=== PATIENT | female | born 1950 | race Caucasian/White ===

== ENCOUNTER 2020-03-28 11:58 | Emergency (ER) | payer MEDICARE, OTHER ==
[2020-03-28 12:20] VITALS: BP 132/58; PULSE 46
[2020-03-28] MEDS ORDERED: Diazepam 5 MG Tab PO ONE (13:02)
--- NOTE | 2020-03-28 14:06 | EDM.PDOC ---
ED HPI GENERAL MEDICAL PROBLEM - General Chief Complaint: General Stated Complaint: Lightheaded Time Seen by Provider: 03/28/20 12:16 Source of Information: Reports: Patient History Limitations: Reports: No Limitations - History of Present Illness INITIAL COMMENTS - FREE TEXT/NARRATIVE: Patient is a 89 year old white female with history of HTN who presents with complaint of several week history of feeling dizzy, SOB at times with cough at times and feeling like she may pass out when she stands up. Patient has fallen several times and feels that she is not thinking clearly. She is concerned aboyt possible stroke or heart attack and proble being related to falling and striking her head Onset Date: 03/03/20 Duration: Week(s): (3 weeks) - Related Data Allergies Allergy/AdvReac Type Severity Reaction Status Date / Time No Known Allergies Allergy Verified 03/28/20 11:59 Home Meds: Home Meds NK [No Known Home Meds] 08/31/16 [History] Past Medical History HEENT History: Reports: Hard of Hearing, Impaired Vision Cardiovascular History: Reports: Arrhythmia, Hypertension, [place], SOB on Exertion, Stents, Syncope Musculoskeletal History: Reports: Osteoarthritis Social & Family History - Tobacco Use Smoking Status *Q: Never Smoker - Caffeine Use Caffeine Use: Reports: Coffee Caffeine Use Comment: in the morning 1 cup - Recreational Drug Use Recreational Drug Use: No ED ROS GENERAL - Review of Systems Review Of Systems: See Below Constitutional: Reports: Chills. Denies: Fever Respiratory: Reports: Shortness of Breath, Cough. Denies: Wheezing Cardiovascular: Reports: Dyspnea on Exertion. Denies: Chest Pain Endocrine: Reports: Fatigue GI/Abdominal: Denies: Nausea, Vomiting : Denies: Dysuria, Flank Pain, Frequency, Hematuria Skin: Denies: Rash Neurological: Reports: Headache ED EXAM, GENERAL - Physical Exam Exam: See Below Exam Limited By: No Limitations General Appearance: Alert, WD/WN, No Apparent Distress Eye Exam: Bilateral Eye: PERRL Ear Exam: Bilateral Ear: Auricle Normal Nose: Normal Inspection, Normal Mucosa, No Blood Throat/Mouth: Normal Inspection, Normal Lips Head: Atraumatic, Normocephalic Neck: Supple, Non-Tender, Full Range of Motion Respiratory/Chest: No Respiratory Distress, Lungs Clear, Normal Breath Sounds Cardiovascular: Regular Rate, Rhythm, No JVD, No Murmur, Bradycardia GI/Abdominal: Soft, Non-Tender, No Distention Extremities: Normal Range of Motion Neurological: Alert, Oriented, CN II-XII Intact, Normal Cognition, Normal Gait, No Motor/Sensory Deficits Psychiatric: Normal Affect, Normal Mood Skin Exam: Warm, Dry, Intact Course - Vital Signs Text/Narrative:: Patient had CT of head which was negative for bleeding or evidence of CVA or fracture Labs reviewed Troponin not elevated CXR within normal limits by my reading Last Recorded V/S: Last Vital Signs Temp 98.2 F 03/28/20 12:12 Pulse 46 L 03/28/20 12:12 Resp 16 03/28/20 12:12 BP 132/58 L 03/28/20 12:12 Pulse Ox 100 03/28/20 12:12 Orthostatic Blood Pressure [ 139/57 Standing] Orthostatic Blood Pressure [ 132/62 Sitting] Orthostatic Blood Pressure [ 131/64 Supine] - Orders/Labs/Meds Orders: Active Orders 24 hr Category Date Time Status EKG Documentation Completion [RC] ASDIRECTED Care 03/28/20 12:29 Active Labs: Laboratory Tests 03/28/20 03/28/20 03/28/20 Range/Units 12:05 13:00 13:05 WBC 10.8 (4.0-11.0) K/uL RBC 4.36 (3.80-5.80) M/uL Hgb 13.2 (11.5-16.5) g/dL Hct 40.0 (37.0-47.0) % MCV 92 (76-96) fL MCH 30.3 (27.0-32.0) pg MCHC 33.0 (31.0-35.0) g/dL RDW 15.2 (11.0-16.0) % Plt Count 332 (150-500) K/uL MPV 12.3 H (6.0-10.0) fL Neut % (Auto) 75.6 H (45.0-70.0) % Lymph % (Auto) 15.1 L (20.0-40.0) % [place] % (Auto) 6.8 (3.0-10.0) % Eos % (Auto) 1.9 (1.0-5.0) % Baso % (Auto) 0.6 H (0.0-0.5) % Neut # (Auto) 8.19 H (2.00-7.50) K/uL Lymph # (Auto) 1.63 (1.50-4.00) K/uL [place] # (Auto) 0.74 (0.20-0.80) K/uL Eos # (Auto) 0.21 (0.04-0.40) K/uL Baso # (Auto) 0.06 (0.02-0.10) K/uL Sodium 137 (136-145) mmol/L Potassium 4.5 (3.5-5.1) mmol/L Chloride 101 (98-107) mmol/L Carbon Dioxide 27.3 D (21.0-32.0) mmol/L Anion Gap 13.2 (5.0-15.0) mmol/L BUN 25 D (8-26) mg/dL Creatinine 1.33 H D (0.55-1.02) mg/dL Est Cr Clr Drug Dosing 29.08 mL/min Estimated GFR (MDRD) 40 L (>60) MLS/MIN BUN/Creatinine Ratio 18.8 (6-25) Glucose 109 H (74-100) mg/dL Calcium 9.3 (8.5-10.1) mg/dL Total Bilirubin 0.7 D (0.0-1.0) mg/dL AST 24 (15-37) U/L ALT 23 (12-78) U/L Alkaline Phosphatase 111 (46-116) U/L Troponin I < 0.017 D (0.000-0.060) ng/mL Total Protein 7.7 (6.4-8.2) g/dL Albumin 4.4 (3.4-5.0) g/dL Globulin 3.3 (2.2-4.2) g/dL Albumin/Globulin Ratio 1.3 (0.8-2.0) COVID-19 (ENE) Negative Meds: Medications Discontinued Medications Generic Name Dose Route Start Last Admin Trade Name Freq PRN Reason Stop Dose Admin Diazepam 5 mg 03/28/20 13:02 03/28/20 13:03 Valium. PO 03/28/20 13:03 Not Given ONETIME ONE Departure - Departure Time of Disposition: 14:00 Disposition: Home, Self-Care 01 Condition: Good Clinical Impression: Adverse reaction to metoprolol Qualifiers: Encounter type: initial encounter Qualified Code(s): T44.7X5A - Adverse effect of beta-adrenoreceptor antagonists, initial encounter - Discharge Information *PRESCRIPTION DRUG MONITORING PROGRAM REVIEWED*: Not Applicable *COPY OF PRESCRIPTION DRUG MONITORING REPORT IN PATIENT SERA: Not Applicable Instructions: Bradycardia, Adult Referrals: PCP,None [Primary Care Provider] - Forms: ED Department Discharge Additional Instructions: Stop metoprolol for now until follow up tomorrow in ED Stand slowly and minimize activity until after being seen in ED tomorrow Return for chest pain, SOB or other worsening of symptoms Recheck tomorrow here in ED Continue other meds Discontinue Celebrex and discuss with your doctor as you have decreased kidney function and this med can make things worse. Condition on discharge is stable Sepsis Event Note (ED) - Evaluation Sepsis Screening Result: No Definite Risk - My Orders Last 24 Hours: My Active Orders 03/28/20 12:29 EKG Documentation Completion [RC] ASDIRECTED - Assessment/Plan Last 24 Hours: My Active Orders 03/28/20 12:29 EKG Documentation Completion [RC] ASDIRECTED
--- NOTE | 2020-03-28 16:51 | CT ---
Date of Service: 03/28/20 Clinical Data: fall UNENHANCED BRAIN CT: Multislice axial acquisition was performed. No priors. There is mild atrophy. No masses or mass effect. No intracranial hemorrhage. No evidence of acute or subacute infarct. No fractures. There is small osteoma projecting from the frontal bone anteriorly. There is minimal mucosal thickening of the ethmoid sinuses consistent with chronic sinusitis. IMPRESSION: No acute intracranial abnormalities. [id number] MTDD
--- NOTE | 2020-03-28 17:21 | CR ---
DATE OF SERVICE: 03/28/20 CLINICAL DATA: Dizziness PA AND LATERAL CHEST: Comparison is made to a prior exam dated 08/31/16. The heart size is normal. There is calcification of the aortic arch. The lungs are clear. No pneumothorax. No pleural effusions. No evidence of acute intrathoracic disease. [id number] MTDD
== END 2020-03-28 14:17 | disposition home or self-care (01) ==
LOC: LB.ED 11:58
DX: R42 Dizziness and giddiness (principal); R05 Cough; T44.7X5A Adverse effect of beta-adrenoreceptor antagonists, initial encounter; R06.02 Shortness of breath; I10 Essential (primary) hypertension; I25.2 Old myocardial infarction; Z20.828 Contact with and (suspected) exposure to other viral communicable diseases
CPT/HCPCS: 36415; 70450; 71046; 80053; 84484; 85025; 93005; 99284; U0002; 99283

== ENCOUNTER 2020-09-13 11:21 | Emergency (ER) | payer MEDICARE ==
[2020-09-13] MEDS ORDERED: Sodium Chloride 0.9% 10 ML Syringe FLUSH PRN (11:27)
--- NOTE | 2020-09-13 11:28 | EDM.PDOC ---
ED HPI GENERAL MEDICAL PROBLEM - General Chief Complaint: Cardiovascular Problem Stated Complaint: DIZZY Time Seen by Provider: 09/13/20 11:25 Source of Information: Reports: Patient, Old Records History Limitations: Reports: No Limitations - History of Present Illness INITIAL COMMENTS - FREE TEXT/NARRATIVE: patient presented to the ER with a c/o headache and low back pain. has a h/o migraine for which she is on prescribed meds. She reports she is worried about a cardiac event because she has a h/o CAD 4 yrs ago requiting stent placement. Denies CP or pressure in the chest area at this time. No SOB. No dizziness or palpitations. No numbness or tingling. Reports a headache that started 5 days ago, for which she took anti-migraine medicine which helped and took the edge off. Denies vision problems or weakness. No nausea. Aslo reports low back pain, for which she took meloxicam which helped. No urinary symptoms. Onset: Gradual Duration: Week(s): (1) Location: Reports: Head, Back Quality: Reports: Dull Severity: Mild Improves with: Reports: Medication, Movement Associated Symptoms: Reports: Headaches. Denies: Chest Pain, Cough, Diaphoresis, Fever/Chills, Malaise, Nausea/Vomiting, Rash, Shortness of Breath, Syncope, Weakness Headache Pain Score (Numeric/FACES): 4 - Related Data Allergies Allergy/AdvReac Type Severity Reaction Status Date / Time No Known Allergies Allergy Verified 09/13/20 11:52 Home Meds: Home Meds Aspirin [Halfprin] 81 mg PO DAILY 09/13/20 [History] Clopidogrel Bisulfate [Plavix] 75 mg PO DAILY 09/13/20 [History] Cyclobenzaprine [Flexeril] 10 mg PO TID PRN 09/13/20 [History] Meloxicam 7.5 mg PO DAILY 09/13/20 [History] Metoprolol Tartrate 25 mg PO DAILY 09/13/20 [History] Rizatriptan Benzoate [Rizatriptan] 5 mg PO DAILY 09/13/20 [History] Zolpidem Tartrate [Ambien] 10 mg PO BEDTIME 09/13/20 [History] amLODIPine Besylate [Norvasc] 2.5 mg PO DAILY 09/13/20 [History] atorvaSTATin Calcium [Lipitor] 40 mg PO DAILY 09/13/20 [History] lisinopriL [Lisinopril] 10 mg PO DAILY 09/13/20 [History] Past Medical History HEENT History: Reports: Hard of Hearing, Impaired Vision Cardiovascular History: Reports: Arrhythmia, Hypertension, [place], SOB on Exertion, Stents, Syncope Musculoskeletal History: Reports: Osteoarthritis Social & Family History - Caffeine Use Caffeine Use: Reports: Coffee Caffeine Use Comment: in the morning 1 cup ED ROS GENERAL - Review of Systems Review Of Systems: See Below Constitutional: Reports: No Symptoms. Denies: Fever, Chills, Malaise, Weakness, Fatigue, Diaphoresis HEENT: Reports: No Symptoms. Denies: Eye Pain, Vision Change Respiratory: Reports: No Symptoms Cardiovascular: Reports: No Symptoms GI/Abdominal: Reports: No Symptoms : Reports: No Symptoms Musculoskeletal: Reports: Back Pain Skin: Reports: No Symptoms Neurological: Reports: Headache. Denies: Confusion, Dizziness, Numbness, Paresthesia, Tingling, Tremors, Change in Speech, Gait Disturbance Psychiatric: Reports: No Symptoms ED EXAM, GENERAL - Physical Exam Exam: See Below Exam Limited By: No Limitations General Appearance: Alert, WD/WN, No Apparent Distress Nose: Normal Inspection Head: Atraumatic, Normocephalic Respiratory/Chest: No Respiratory Distress, Lungs Clear, Normal Breath Sounds, No Accessory Muscle Use Cardiovascular: Normal Peripheral Pulses, Regular Rate, Rhythm Peripheral Pulses: 2+: Carotid (L), Radial (L) GI/Abdominal: Normal Bowel Sounds, Soft, Non-Tender Rectal (Female) Exam: Normal Exam, Normal Rectal Tone Extremities: Normal Inspection Neurological: Alert, Oriented, CN II-XII Intact, Normal Cognition Skin Exam: Warm, Dry Course - Vital Signs Last Recorded V/S: Last Vital Signs Temp 36.4 C 09/13/20 11:50 Pulse 75 09/13/20 12:40 Resp 18 09/13/20 12:40 BP 101/58 L 09/13/20 12:40 Pulse Ox 97 09/13/20 12:40 - Orders/Labs/Meds Orders: Active Orders 24 hr Category Date Time Status EKG Documentation Completion [RC] ASDIRECTED Care 09/13/20 11:27 Active Chest 1V Frontal [CR] Stat Exams 09/13/20 11:26 Taken Sodium Chloride 0.9% [Saline Flush] Med 09/13/20 11:27 Active 10 ml FLUSH ASDIRECTED PRN Saline Lock Insert [OM.PC] Routine Oth 09/13/20 11:27 Ordered Medication Orders Sodium Chloride (Saline Flush) 10 ml FLUSH ASDIRECTED PRN PRN Reason: Keep Vein Open Labs: Laboratory Tests 09/13/20 09/13/20 09/13/20 Range/Units 11:49 12:08 12:08 WBC 14.6 H D (4.0-11.0) K/uL RBC 4.15 (3.80-5.80) M/uL Hgb 12.4 (11.5-16.5) g/dL Hct 38.1 (37.0-47.0) % MCV 92 (76-96) fL MCH 29.9 (27.0-32.0) pg MCHC 32.5 (31.0-35.0) g/dL RDW 15.3 (11.0-16.0) % Plt Count 337 (150-500) K/uL MPV 12.3 H (6.0-10.0) fL Sodium 136 (136-145) mmol/L Potassium 4.3 (3.5-5.1) mmol/L Chloride 101 (98-107) mmol/L Carbon Dioxide 25.5 (21.0-32.0) mmol/L Anion Gap 13.8 (5.0-15.0) mmol/L BUN 37 H D (8-26) mg/dL Creatinine 2.21 H D (0.55-1.02) mg/dL Est Cr Clr Drug Dosing 17.50 mL/min Estimated GFR (MDRD) 22 L (>60) MLS/MIN BUN/Creatinine Ratio 16.7 (6-25) Glucose 104 H (74-100) mg/dL Calcium 9.4 (8.5-10.1) mg/dL Phosphorus 4.3 (2.5-4.9) mg/dL Magnesium 2.3 (1.8-2.4) mg/dL Troponin I < 0.017 (0.000-0.060) ng/mL Urine Color Urine Appearance (CLEAR) Urine pH (5.0-8.0) Ur Specific [place] (1.003-1.030) Urine Protein (NEGATIVE) mg/dL Urine Glucose (UA) (NEGATIVE) mg/dL Urine Ketones (NEGATIVE) mg/dL Urine Occult Blood (NEGATIVE) Urine Nitrite (NEGATIVE) Urine Bilirubin (NEGATIVE) Urine Urobilinogen (0.2-1.0) E.U./dL Ur Leukocyte Esterase (NEGATIVE) SARS CoV-2 RNA Rapid ENE Negative 09/13/20 Range/Units 13:15 WBC (4.0-11.0) K/uL RBC (3.80-5.80) M/uL Hgb (11.5-16.5) g/dL Hct (37.0-47.0) % MCV (76-96) fL MCH (27.0-32.0) pg MCHC (31.0-35.0) g/dL RDW (11.0-16.0) % Plt Count (150-500) K/uL MPV (6.0-10.0) fL Sodium (136-145) mmol/L Potassium (3.5-5.1) mmol/L Chloride (98-107) mmol/L Carbon Dioxide (21.0-32.0) mmol/L Anion Gap (5.0-15.0) mmol/L BUN (8-26) mg/dL Creatinine (0.55-1.02) mg/dL Est Cr Clr Drug Dosing mL/min Estimated GFR (MDRD) (>60) MLS/MIN BUN/Creatinine Ratio (6-25) Glucose (74-100) mg/dL Calcium (8.5-10.1) mg/dL Phosphorus (2.5-4.9) mg/dL Magnesium (1.8-2.4) mg/dL Troponin I (0.000-0.060) ng/mL Urine Color Yellow Urine Appearance Clear (CLEAR) Urine pH 5.0 (5.0-8.0) Ur Specific [place] 1.025 (1.003-1.030) Urine Protein Negative (NEGATIVE) mg/dL Urine Glucose (UA) Negative (NEGATIVE) mg/dL Urine Ketones 15 H (NEGATIVE) mg/dL Urine Occult Blood Negative (NEGATIVE) Urine Nitrite Negative (NEGATIVE) Urine Bilirubin Small H (NEGATIVE) Urine Urobilinogen 0.2 (0.2-1.0) E.U./dL Ur Leukocyte Esterase Negative (NEGATIVE) SARS CoV-2 RNA Rapid ENE Meds: Medications Generic Name Dose Route Start Last Admin Trade Name Wojciech PRN Reason Stop Dose Admin Sodium Chloride 10 ml 09/13/20 11:27 Saline Flush FLUSH ASDIRECTED PRN Keep Vein Open - Re-Assessments/Exams Free Text/Narrative Re-Assessment/Exam: 09/13/20 13:39 EKG - WNL CXR WNL labs significant for mild leukocytosis, but elevation in her Cr. Trop WNL COVID neg Patients admits she hasn't been drinking enough fluids recently. It was explained to her is that, not drinking enough fluids plus NSAIDs can damage the kidneys. she was offered IVF for hydration - she declined and prefer to drink by mouth Departure - Departure Time of Disposition: 13:40 Disposition: Home, Self-Care 01 Condition: Good Clinical Impression: CRISELDA (acute kidney injury) Headache Qualifiers: Headache type: tension-type Headache chronicity pattern: chronic headache Intractability: intractable Qualified Code(s): G44.221 - Chronic tension-type headache, intractable - Discharge Information *PRESCRIPTION DRUG MONITORING PROGRAM REVIEWED*: Not Applicable *COPY OF PRESCRIPTION DRUG MONITORING REPORT IN PATIENT SERA: Not Applicable Referrals: PCP,None [Primary Care Provider] - Forms: ED Department Discharge Additional Instructions: - increase fluids intake to at least 3-4 lit per day for the next 3-4 days - recommend to stop taking meloxicam or NSAIDs since this can affect your kidney function - follow up with your PCP in 3-4 days- recommend to recheck your kidney function - return to the ER if any concerns Sepsis Event Note (ED) - Focused Exam Vital Signs: Vital Signs Temp Pulse Resp BP Pulse Ox 09/13/20 12:40 75 18 101/58 L 97 09/13/20 12:20 64 18 108/53 L 100 09/13/20 12:00 70 18 98/53 L 98 09/13/20 11:50 36.4 C 74 18 108/67 97 09/13/20 11:45 74 18 108/67 98 09/13/20 11:23 37.1 C 83 18 108/64 97 - Problem List & Annotations (1) CRISELDA (acute kidney injury) SNOMED Code(s): 34182776, 01564922 Code(s): N17.9 - ACUTE KIDNEY FAILURE, UNSPECIFIED Status: Acute Priority: Medium Current Visit: Yes (2) Headache SNOMED Code(s): 03613688 Code(s): R51.9 - HEADACHE, UNSPECIFIED Status: Acute Priority: Low Current Visit: Yes Qualifiers: Headache type: tension-type Headache chronicity pattern: chronic headache Intractability: intractable Qualified Code(s): G44.221 - Chronic tension-type headache, intractable (3) Mild dehydration SNOMED Code(s): 1963476530937 Code(s): E86.0 - DEHYDRATION Status: Acute Priority: Medium Current Visit: Yes - My Orders Last 24 Hours: My Active Orders 09/13/20 11:26 Chest 1V Frontal [CR] Stat 09/13/20 11:27 EKG Documentation Completion [RC] ASDIRECTED Sodium Chloride 0.9% [Saline Flush] 10 ml FLUSH ASDIRECTED PRN Saline Lock Insert [OM.PC] Routine - Assessment/Plan Last 24 Hours: My Active Orders 09/13/20 11:26 Chest 1V Frontal [CR] Stat 09/13/20 11:27 EKG Documentation Completion [RC] ASDIRECTED Sodium Chloride 0.9% [Saline Flush] 10 ml FLUSH ASDIRECTED PRN Saline Lock Insert [OM.PC] Routine Plan: - increase fluids intake to at least 3-4 lit per day for the next 3-4 days - recommend to stop taking meloxicam or NSAIDs since this can affect your kidney function - follow up with your PCP in 3-4 days- recommend to recheck your kidney function
[2020-09-13 13:05] VITALS: BP 101/58; PULSE 75
--- NOTE | 2020-09-14 17:17 | CR ---
CLINICAL DATA: SOB. AP CHEST, 13 SEPTEMBER 2020: Comparison made to a prior exam dated 28 March 2020. The heart size is normal. There is calcification of the aortic arch. The patient is in an apical lordotic position. The lungs are clear. No pneumothorax. No pleural effusions. No evidence of acute intrathoracic disease. Job: [id number] MTDD
== END 2020-09-13 14:00 | disposition home or self-care (01) ==
LOC: LB.ED 11:21
DX: G44.221 Chronic tension-type headache, intractable (principal); N17.9 Acute kidney failure, unspecified; D72.829 Elevated white blood cell count, unspecified; I10 Essential (primary) hypertension; I25.2 Old myocardial infarction; M19.90 Unspecified osteoarthritis, unspecified site; Z79.82 Long term (current) use of aspirin; Z79.02 Long term (current) use of antithrombotics/antiplatelets; Z79.899 Other long term (current) drug therapy; Z20.822 Contact with and (suspected) exposure to COVID-19
CPT/HCPCS: 36415; 71045; 80048; 81003; 83735; 84100; 84484; 85027; 93005; 99283; 99284-25; U0002

== ENCOUNTER 2023-06-16 11:50 | Emergency (ER) | payer OTHER, MEDICARE ==
[2023-06-16 12:10] VITALS: BP 148/54; PULSE 61
[2023-06-16] MEDS ORDERED: Ketorolac 30 MG/ML SDV IM ONE (12:29)
[2023-06-16] MEDS: HYDROmorphone 2 MG/ML Syringe SUBCUT ONE (12:41)
[2023-06-16] MEDS: HYDROmorphone 2 MG/ML Syringe ONE (12:42)
== END 2023-06-16 14:44 | disposition home or self-care (01) ==
LOC: LB.ED 11:50
DX: S09.93XA Unspecified injury of face, initial encounter (principal); I25.2 Old myocardial infarction; I25.10 Atherosclerotic heart disease of native coronary artery without angina pectoris; Z95.5 Presence of coronary angioplasty implant and graft; Z79.899 Other long term (current) drug therapy; W01.0XXA Fall on same level from slipping, tripping and stumbling without subsequent striking against object, initial encounter
CPT/HCPCS: 70450; 70486; 73030-LT; 73502-LT; 73562-LT; 96372; 99283; 99284; J1170